=== PATIENT | male | born 1950 | race Caucasian/White ===

== ENCOUNTER 2018-02-28 14:00 | Inpatient (IN) | payer OTHER ==
[~2018-02-28] VITALS: Ht 177.8 cm; Wt 89.2 kg
--- NOTE | 2018-02-28 14:13 | ED CARDIAC/CP/PALPITATIONS ---
History of Present Illness General Chief Complaint: General Adult Stated Complaint: LOW PULSE, PASSED OUT Source: patient, family, old records Exam Limitations: no limitations Vital Signs & Intake/Output Vital Signs & Intake/Output Vital Signs Date Time Temp Pulse Resp B/P B/P Pulse O2 O2 Flow FiO2 Mean Ox Delivery Rate 02/28 1522 97.7 124 18 170/78 02/28 1454 97.7 124 18 170/78 97 Room Air 02/28 1448 98.9 166 20 172/114 02/28 1426 98 02/28 1412 98.9 166 20 135/102 98 Room Air Allergies Coded Allergies: acetaminophen (From PERCOCET) (RASH 02/28/18) oxycodone (From PERCOCET) (RASH 02/28/18) Reconcile Medications No Known Home Medications Triage Nurses Notes Reviewed? yes HPI: Patient was getting the probe ready did have a barbecue when all of a sudden he felt substernal chest pressure and felt like his heart was skipping beats. Patient went inside and took his blood pressure and the monitor was having a difficult time getting his pulse. Patient went into A. fib once in the past after a Whipple's procedure however he converted back to sinus and hence been in sinus rhythm ever since. Patient states he saw his cardiovascular surgical tech just a few weeks ago and they talked about long-term anticoagulation however decided against it. Patient denies any lightheadedness or shortness of breath. The substernal pressure has resolved however he still does feel the palpitations. There is no nausea or vomiting. Patient has been on blood pressure medication however his blood pressure was doing great so he stopped it a few months ago. Past History Travel History Traveled to [place] past 21 day No Medical History Any Pertinent Medical History? see below for history Cardiovascular: AFIB (ONCE), hypertension Surgical History Surgical History: WHIPPLE'S PROSTETECTOMY Psychosocial History What is your primary language Burundian Tobacco Use: Never used ETOH Use: occasional use Illicit Drug Use: denies illicit drug use Family History Hx Contributory? No Review of Systems Review of Systems Constitutional: Reports: no symptoms. EENTM: Reports: no symptoms. Respiratory: Reports: no symptoms. Cardiovascular: Reports: see HPI, chest pain, palpitations. GI: Reports: no symptoms. Genitourinary: Reports: no symptoms. Musculoskeletal: Reports: no symptoms. Skin: Reports: no symptoms. Neurological/Psychological: Reports: no symptoms. Hematologic/Endocrine: Reports: no symptoms. Immunologic/Allergic: Reports: no symptoms. All Other Systems: Reviewed and Negative Physical Exam Physical Exam General Appearance: well developed/nourished, alert, awake, anxious, moderate distress Head: atraumatic, normal appearance Eyes: Bilateral: PERRL, EOMI. Ears, Nose, Throat: normal pharynx, normal ENT inspection, hearing grossly normal Neck: normal inspection, supple, full range of motion Respiratory: normal breath sounds, chest non-tender, no respiratory distress, lungs clear Cardiovascular: normal peripheral pulses, tachycardia, irregularly irregular Gastrointestinal: normal bowel sounds, soft, non-tender, no organomegaly Back: normal inspection, normal range of motion Extremities: normal inspection, normal capillary refill, normal range of motion, no edema Neurologic/Psych: no motor/sensory deficits, awake, alert, oriented x 3, normal gait, normal mood/affect Skin: intact, normal color, warm/dry Lymphatic: no anterior cervical tejinder Core Measures ACS in differential dx? Yes CVA/TIA Diagnosis No Sepsis Present: No Sepsis Focused Exam Completed? No Progress Differential Diagnosis: AMI, atrial fibrillation, hyperthyroid Plan of Care: Orders Procedure Date/time Status Patient Data 02/28 1540 Active Telemetry/[employer] Clerk 02/28 1412 Active D-DIMER 02/28 1407 Complete URINALYSIS 02/28 1402 Complete TSH REFLEX 02/28 1402 Complete TROPONIN LEVEL 02/28 1402 Complete MAGNESIUM 02/28 1402 Complete COMPREHENSIVE METABOLIC PANEL 02/28 1402 Complete CBC WITHOUT DIFFERENTIAL 02/28 1402 Complete EKG 02/28 1402 Active Current Medications Sig/Candice Start time Last Medication Dose Stop Time Status Admin Diltiazem HCl 10 MG ONCE ONE 02/28 1600 UNVr (Cardizem) 02/28 1601 Diltiazem HCl 125 MG Q12H 02/28 1600 UNVr (Cardizem DRIP) Dextrose/Water 100 ML (D5W) Heparin Sodium 5,000 UNIT ONCE ONE 02/28 1600 UNVr (Porcine) 02/28 1601 (Heparin Bolus) Heparin Sodium/ 25,000 UNIT Q24H 02/28 1600 UNVr Dextrose (Heparin) Dextrose/Water 500 ML (D5W) Laboratory Tests 02/28/18 1445: Urine Color YEL, Urine Clarity CLEAR, Urine pH 6.0, Ur Specific [place] 1.015, Urine Protein NEG, Urine Ketones NEG, Urine Nitrite NEG, Urine Bilirubin NEG, Urine Urobilinogen 0.2, Ur Leukocyte Esterase NEG, Ur Microscopic EXAM NOT REQUIRED, Urine Hemoglobin NEG, Urine Glucose NEG 02/28/18 1415: Anion Gap 14, Estimated GFR > 60, BUN/Creatinine Ratio 16.7, Glucose 116 H, Calcium 9.7, Magnesium 2.0, Total Bilirubin 0.6, AST 28, ALT 32, Alkaline Phosphatase 67, Troponin I < 0.01, Total Protein 7.4, Albumin 4.7, Globulin 2.7, Albumin/Globulin Ratio 1.7, TSH &T3 &Free T4 Intrp 1.580, D-Dimer High Sensitivty < 200, CBC w Diff NO MAN DIFF REQ, RBC 4.90, MCV 89.6, MCH 30.2, MCHC 33.7, RDW 13.6, MPV 6.7 L, Gran % 65.1, Lymphocytes % 26.2, Monocytes % 7.7, Eosinophils % 0.7, Basophils % 0.3, Absolute Granulocytes 4.9, Absolute Lymphocytes 2.0, Absolute Monocytes 0.6, Absolute Eosinophils 0.1, Absolute Basophils 0 Initial ED EKG: AFIB (WITH RVR), nonspecific ST T wave chg Prior EKG: changed Rhythm Strip: atrial fibrillation Departure Departure Disposition: STILL A PATIENT Condition: Stable Clinical Impression Primary Impression: Atrial fibrillation with RVR Secondary Impressions: Chest pain Referrals: Dawn HAAS,Sp Avendaño (PCP/Family) Departure Forms: Customer Survey General Discharge Information Prescriptions: Current Visit Scripts No Known Home Medications Admission Note Spoke With: Danette HAAS,Ninfa Olivier Documentation of Exam: Documentation of any treatments & extenuating circumstances including Concerns Regarding Discharge (functional status, medication knowledge or non-compliance, living conditions, etc.) that warrant an admission rather than observation: [ Telemetry admission, serial enzymes, Cardizem drip, heparin drip, cardiology consultation] Critical Care Note Critical Care Note Critical Care Time: mins: (90 MIN)
[2018-02-28 14:28] LABS: ABSOLUTE BASOPHIL COUNT 0 /CUMM (0.0-0.2); ABSOLUTE EOSINOPHIL COUNT 0.1 /CUMM (0.0-0.7); ABSOLUTE GRANULOCYTE CT 4.9 /CUMM (1.4-6.5); ABSOLUTE MONOCYTE COUNT 0.6 /CUMM (0.10-0.60); BASOPHIL % 0.3 % (0.0-2.0); EOSINOPHIL % 0.7 % (0-5); GRANULOCYTE % 65.1 % (42.2-75.2); HEMATOCRIT 43.9 % (42-52); MEAN CORPUSCULAR HGB 30.2 PG (27.0-31.0); MEAN CORPUSCULAR HGB CONC 33.7 G/DL (33.0-37.0); MEAN CORPUSCULAR VOLUME 89.6 FL (80.0-94.0); MEAN PLATELET VOLUME 6.7 FL (7.4-10.4); PLATELET COUNT 248 /CUMM (130-400); RBC DISTRIBUTION WIDTH 13.6 % (11.5-14.5); WHITE BLOOD CELL COUNT 7.5 /CUMM (4.8-10.8)
--- NOTE | 2018-02-28 15:37 | RADIOLOGY REPORT ---
EXAMINATION: XR PORTABLE CHEST CLINICAL INFORMATION: Chest pain COMPARISON: CT dated 05/14/2012 TECHNIQUE: AP portable upright view of the chest FINDINGS: Lungs are clear. No consolidation, pneumothorax, or pleural effusion. Cardiac and mediastinal contours are normal. Pulmonary vasculature is unremarkable. 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 IMPRESSION: No acute cardiopulmonary findings
[2018-02-28 16:46] LABS: PT 13.1 SEC (9.4-12.5); PTT 29 SEC (25-37)
--- NOTE | 2018-02-28 16:56 | History & Physical ---
See Addendum Rah Helton 02/28/18 1655: General Information and HPI Source of Information: patient Exam Limitations: no limitations History of Present Illness: Patient is a 67-year-old male with past medical history of hypertension, as well as a brief period of Atrial fibrillation after undergoing a Whipple procedure in June 2017since resolved. Patient also became hypotensive to the point of receiving blood transfusions after laparoscopic prostatectomy in November of this year, but has otherwise not been found to be hypotensive. The patient was at his grill for a Fourth of February when he began to experience chest pain, that was crushing in nature in the center of his chest. He remained at the grill for approximately half an hour until the pain became too much to bear and he went inside and checked his blood pressure, which his machine was unable to read and gave a pulse into the 120s and above. While inside the patient also began to feel faint and felt like he would pass out. Patient denied shortness of breath, diaphoresis, impending sense of dread, or nausea and vomiting. Allergies/Medications Allergies: Coded Allergies: acetaminophen (From PERCOCET) (RASH 02/28/18) oxycodone (From PERCOCET) (RASH 02/28/18) Home Med list No Known Home Medications Compliance With Home Meds: FAIR Past History Travel History Traveled to [place] past 21 day No Medical History Blood Transfusion Hx: Yes (s/p prostatectomy November 2017) Cardiovascular: AFIB (ONCE 3 DAYS POST WHIPPLE), hypertension Respiratory: NONE Gastrointestinal: Pancreatic neuroendocrine tumor, s/p Whipple Musculoskeletal: Prior surgery after putting "hand through a table saw" Cancer(s): PROSTATE CA s/p prostatectomy TUMOR ON PANCREAS (Neuroendocrine) 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 Home Primary Language: Croatian Smoking Status: Former Smoker (20 pack year history, quit 30y) ETOH Use: occasional use Illicit Drug Use: denies illicit drug use Functional Ability Ambulation: independent IADLs Independent: shopping, housework, finances, food prep, telephone, transportation , medication admin. 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 Denies: see HPI, chills, diaphoresis, fever. Cardiovascular: Reports: see HPI, chest pain, palpitations, syncope (near-syncope). Denies: edema, peripheral edema. Respiratory: Denies: cough, hemoptysis, orthopnea, short of breath, sputum production. GI: Denies: abdominal pain, constipation, diarrhea, nausea, vomiting. Musculoskeletal: Denies: muscle pain, muscle stiffness. Skin: Reports: cysts (sebaceous cyts, posterior neck), rash (on right back/flank). Exam & Diagnostic Data Last 24 Hrs of Vital Signs/I&O Vital Signs Date Time Temp Pulse Resp B/P B/P Pulse O2 O2 Flow FiO2 Mean Ox Delivery Rate 02/28 1733 Room Air 02/28 1648 118 18 162/92 97 Room Air 02/28 1643 97.7 124 18 162/92 02/28 1522 97.7 124 18 170/78 02/28 1454 97.7 124 18 170/78 97 Room Air 02/28 1448 98.9 166 20 172/114 02/28 1426 98 02/28 1412 98.9 166 20 135/102 98 Room Air Intake & Output 02/28 1600 04 0800 02/28 0000 Intake Total 1000 Output Total 700 Balance 300 Intake, IV 1000 Output, Urine 700 Patient 83.915 kg Weight Physical Exam General Appearance Alert, Oriented X3, Cooperative, No Acute Distress Skin Rash on right flank/back Neck Supple, No JVD, No thryomegaly Cardiovascular Irregular rate, tachycardic Lungs Clear to Auscultation Abdomen Soft, No Tenderness, large scar along the midline, multiple laparoscopic scars on the lower abdomen Extremities No Clubbing, No Cyanosis, No Edema Body Front and Back (Adult) 1) rash 2) scar 3) scar Last 24 Hrs of Labs/Paul: Laboratory Tests 02/28/18 1445: Urine Color YEL, Urine Clarity CLEAR, Urine pH 6.0, Ur Specific [place] 1.015, Urine Protein NEG, Urine Ketones NEG, Urine Nitrite NEG, Urine Bilirubin NEG, Urine Urobilinogen 0.2, Ur Leukocyte Esterase NEG, Ur Microscopic EXAM NOT REQUIRED, Urine Hemoglobin NEG, Urine Glucose NEG 02/28/18 1415: Anion Gap 14, Estimated GFR > 60, BUN/Creatinine Ratio 16.7, Glucose 116 H, Calcium 9.7, Magnesium 2.0, Total Bilirubin 0.6, AST 28, ALT 32, Alkaline Phosphatase 67, Troponin I < 0.01, Total Protein 7.4, Albumin 4.7, Globulin 2.7, Albumin/Globulin Ratio 1.7, TSH &T3 &Free T4 Intrp 1.580, PT 13.1 H, INR 1.20 H, APTT 29, D-Dimer High Sensitivty < 200, CBC w Diff NO MAN DIFF REQ, RBC 4.90, MCV 89.6, MCH 30.2, MCHC 33.7, RDW 13.6, MPV 6.7 L, Gran % 65.1, Lymphocytes % 26.2, Monocytes % 7.7, Eosinophils % 0.7, Basophils % 0.3, Absolute Granulocytes 4.9, Absolute Lymphocytes 2.0, Absolute Monocytes 0.6, Absolute Eosinophils 0.1, Absolute Basophils 0 Assessment/Plan Assessment: Patient is a 67-year-old male with PMH of HTN, as well as a brief period of post -op A-fib in 2016, presenting for chest pain, palpitations and near-syncope while at a [facility] [place]. Admitted for rapid atrial fibrillation 1. Atrial fibrillation episodes procedure in June 2017 (previously managed with amiodarone) [place] 2. Chest pain 3. Hypertension As Ranked By This Provider Problem List: 1. Atrial fibrillation with RVR 2. Chest pain 3. Hypertension Core Measures/Misc (05/14) Acute Coronary Syndrome ACS Diagnosis: No Congestive Heart Failure Congestive Heart Failure Diagnosis No Cerebrovascular Accident CVA/TIA Diagnosis: No VTE (View Protocol) VTE Risk Factors Age>40 No Mechanical VTE Prophylaxis d/t N/A MechProphylax Ordered No VTE Pharm Prophylaxis d/t LowRisk-No Interven Req'd Sepsis (View protocol) Sepsis Present: No If YES complete Sepsis Event Note If YES complete Sepsis Event Note Ralf Knox 02/28/18 1722: Core Measures/Misc (05/14) Sepsis (View protocol) If YES complete Sepsis Event Note If YES complete Sepsis Event Note Resident Review Statement Resident Statement: examined this patient, discussed with food and beverage intern, agreed with food and beverage intern, discussed with family, reviewed EMR data (avail), discussed with nursing , discussed with case mgmt, reviewed images, amended to note Other Findings: This is a 67-year-old male with past medical history significant for paroxysmal atrial fibrillation, remained in normal sinus rhythm, hypertension, Whipple's procedure s/p neuroendocrine tumor removal, laparoscopic prostatectomy for prostate cancer presented to the emergency room for evaluation of chest pressure , palpitations, short of breath since morning. Patient reports sudden onset of chest pressure associated with skipped beats. He checked his blood pressure which was high and he found his pulse was 130. Also reported associated shortness of breath. Patient states that chest pressure was left-sided, 8/10, substernal, nonradiating, no aggravating or relieving factors. Given chest pain, palpitations, high heart rate he decided to come to the emergency room for further evaluation. Review of systems denies any cough, lightheadedness, dizziness or syncope, headache, nausea vomiting, abdominal pain, change in bladder or bowel habits. Patient states that he was diagnosed with paroxysmal atrial fibrillation last year after Whipple's procedure. However he was returned to sinus rhythm within few days. His exercise manager from [employer] discontinued amiodarone and metoprolol. Also he mentions that he chose not to take blood thinners at bedtime. Patient states that he takes adarbyclor for his prior blood pressure. He is a former smoker half pack per day for 25 years. Denies alcohol abuse. Denies any illicit drug abuse. No family history of heart attack, stroke, heart diseases. --- Vitals afebrile, heart rate 166, respiratory rate 18, blood pressure 170/70, saturating at 97 on room air. Exam S1-S2 normal, irregularly irregular heart rate, no murmurs. Bilateral lung sounds normal. Abdomen soft nontender. No JVD, no cervical lymphadenopathy. No peripheral edema Labs wbc 7.5, hemoglobin 14, platelets 248, BEP normal limits. D-dimer less than 200 Thyroid function test in normal limits Troponin 0.01 Chest x-ray within normal limits EKG showed new onset atrial fibrillation, rate 154, no acute ST-T wave changes. Patient received Cardizem 10 mg push IV twice in the emergency room. He was given heparin bolus and started on heparin drip and Cardizem drip in the emergency room. --- 1. Atrial fibrillation with rapid ventricular response Patient presented with chest pressure associated with palpitations. He was found to have heart rate of 166. EKG in the emergency room showed atrial fibrillation with irregularly irregular RR interval, rate 154, no ST-T wave changes. Troponin was negative. Given his palpitations, EKG findings patient was admitted to telemetry for atrial fibrillation. -Admit to telemetry for rapid A. fib -Continuous telemetry monitoring -Patient was started on Cardizem drip 12.5 mL/hr -Patient was started on heparin drip after heparin bolus -Cardiology consulted -Serial troponin and EKG given his chest pain - which resolved by its own -Follow-up echocardiogram -Thyroid function test within normal limits -Advised patient to cut down on caffeine 2. Hypertension Patient usually takes as his losartan and chlorthalidone combination at home - will continue losartan and chlorthalidone here Patient is full code DVT prophylaxis on IV heparin drip Regular diet Frances Samaniego 02/28/18 1735: Core Measures/Misc (05/14) Sepsis (View protocol) If YES complete Sepsis Event Note If YES complete Sepsis Event Note Attending MD Review Statement Attending Statement Attending MD Statement: examined this patient, discuss w/resident/PA/KITCHENHAND, agreed w/resident/PA/KITCHENHAND, discussed with family, reviewed EMR data (avail), discussed with nursing, discussed with case mgmt, reviewed images, amended to note Attending Assessment/Plan: This is a 67-year-old male with past medical history significant for paroxysmal atrial fibrillation, remained in normal sinus rhythm, hypertension, Whipple's procedure s/p neuroendocrine tumor removal, laparoscopic prostatectomy for prostate cancer presented to the emergency room for evaluation of chest pressure , palpitations, short of breath since morning. Patient found to be in afib uncontrolled started on iv cardizem in ER. Patient also on iv heparin, needs cardiology consult, ECHO, serial cardiac enzymes. GI/DVT PROPHYLAXIS FULL CODE.
[2018-02-28 18:04] VITALS: BP 158/96
--- NOTE | 2018-02-28 18:44 | PN- Student ---
Subjective Subjective: HPI: This is a 67 year old man with a past medical history of hypertension, prior episode of a-fib, S/P Whipple Procedure, S/P prostatectomy. He arrived in the ER following a new onset of chest pain. His pain began this afternoon at 12:30 while he was barbequeing for his family. He became dizzy and felt mild chest pain that he rated at a 2/10 on the pain scale along with indigestion, and visual field narrowing that waxed and waned. He denied any radiating pain. He moved out of the heat and in to an air conditioned room where he attempted to take his blood pressure, however the machine kept stating pulse error and reporting his pulse from 40 to 149 beats per minute. He felt this may possibly be a-fib and came to [place] [facility]. He has experienced a-fib once in the past following a Whipple Procedure done in June of 2017. He was treated for it by Dr. Lynn in [place] with metoprolol and amiodarone, but did not require terminal operations manager care by a welding pantograph operator. His hypertension was diagnosed over 10 years ago, but he stated that he stopped taking his blood pressure medication following the Whipple Procedure because he felt that it was well controlled following the surgery. He states that he takes his blood pressure regularly and it is in the 130's systolic with no medications. He dislikes taking medications unless necessary, and felt comfortable with his blood pressure. He denies any recent sick contacts, fevers, headaches, vision changes, indigestion, nausea, vomiting, numbness or tingling. Past medical history Chronic conditions: -Patient denied any chronic conditions aside from HTN. Patient denied prior hospitalizations. 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 Patient had to be transfused post surgery due to hypotension. 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 -Bikes regularly and walks. -He feels his diet is healthy but does not specifically watch his salt intake. -Denies current alcohol usage, admitted to drinking beer in the past with dinner on occasion. -Former smoker, smoked 1 pack a day for 20 years, quit 30 years ago. Family history: -Father: HTN, pacemaker at 89 yo. -Mother: Alive and well at 89. -6 siblings, all reported healthy. Objective Objective: Physical Exam: General: Patient was alert and oriented, pleasant, and well spoken. Skin: Erythemic pigmentation noted to patient's face. Macular rash with a scattered distribution covering an area of over 10 cm on patient's right posterior flank. Head: Normocephalic, atraumatic. PERRLA. Neck: No JVD, trachea was midline. Chest: No lifts, heaves, or thrills. Apical pulse was appreciated. Pulse was irregular, but normal rate. S1 and S2 sounds were heard with no splitting. No rubs, clicks, murmurs or gallops were heard. Lungs: Even thoracic expansion, lung sounds were clear bilaterally. Abdomen: Bowel sounds were heard every 2-3 seconds. Abdomen was soft and nontender in all quadrants. No CVA tenderness. Vital Signs Date Time Temp Pulse Resp B/P B/P Pulse O2 O2 Flow FiO2 Mean Ox Delivery Rate 03/01 0850 86 124/72 07/05 0849 86 124/72 07/05 0641 97.6 66 20 108/68 97 Room Air 07/04 2305 98.3 70 18 118/62 95 Room Air 07/04 1841 102 160/82 07/04 1804 98.2 101 20 158/96 97 Room Air 07/04 1733 Room Air 07/04 1648 118 18 162/92 97 Room Air 07/04 1643 97.7 124 18 162/92 07/04 1522 97.7 124 18 170/78 07/04 1454 97.7 124 18 170/78 97 Room Air 07/04 1448 98.9 166 20 172/114 07/04 1426 98 07/04 1412 98.9 166 20 135/102 98 Room Air Imaging: CXR was clear. Lab values: Troponins were trended and negative. Elevated glucose level at 116. Results Results: Laboratory Tests 03/01/18 1110: APTT Pending 03/01/18 0650: Anion Gap 9, Estimated GFR > 60, BUN/Creatinine Ratio 16.3, CBC w Diff NO MAN DIFF REQ, RBC 4.38 L, MCV 90.1, MCH 30.3, MCHC 33.7, RDW 13.7, MPV 6.9 L, Gran % 60.6, Lymphocytes % 29.4, Monocytes % 8.9, Eosinophils % 0.8, Basophils % 0.3, Absolute Granulocytes 4.1, Absolute Lymphocytes 2.0, Absolute Monocytes 0.6, Absolute Eosinophils 0.1, Absolute Basophils 0 03/01/18 0205: Troponin I < 0.01 02/28/18 2315: APTT 66 H 02/28/18 2030: Troponin I < 0.01 02/28/18 1445: Urine Color YEL, Urine Clarity CLEAR, Urine pH 6.0, Ur Specific [place] 1.015, Urine Protein NEG, Urine Ketones NEG, Urine Nitrite NEG, Urine Bilirubin NEG, Urine Urobilinogen 0.2, Ur Leukocyte Esterase NEG, Ur Microscopic EXAM NOT REQUIRED, Urine Hemoglobin NEG, Urine Glucose NEG 02/28/18 1415: Anion Gap 14, Estimated GFR > 60, BUN/Creatinine Ratio 16.7, Glucose 116 H, Calcium 9.7, Magnesium 2.0, Total Bilirubin 0.6, AST 28, ALT 32, Alkaline Phosphatase 67, Troponin I < 0.01, Total Protein 7.4, Albumin 4.7, Globulin 2.7, Albumin/Globulin Ratio 1.7, TSH &T3 &Free T4 Intrp 1.580, PT 13.1 H, INR 1.20 H, APTT 29, D-Dimer High Sensitivty < 200, CBC w Diff NO MAN DIFF REQ, RBC 4.90, MCV 89.6, MCH 30.2, MCHC 33.7, RDW 13.6, MPV 6.7 L, Gran % 65.1, Lymphocytes % 26.2, Monocytes % 7.7, Eosinophils % 0.7, Basophils % 0.3, Absolute Granulocytes 4.9, Absolute Lymphocytes 2.0, Absolute Monocytes 0.6, Absolute Eosinophils 0.1, Absolute Basophils 0 Assessment/Plan Assessment: This is a 67 year old man with past medical history of hypertension, prior a-fib , S/P Whipple procedure, S/P prostatectomy being seen for chest pain. Arrhythmia: Patient had a maximum heart rate of 129 beats per minute and irregularly irregular findings on the EKG indicating a-fib. Due to a [id number] score of 2, he will have to be anticoagulated. AL was ruled out with EKG without ST elevations and negative troponins. Unlikely to be aortic dissection given mild character of the chest pain that did not radiate to the back and no difference in blood pressure in both arms. Patient denied any recent sicknesses or sick contacts, or pain associated with change in position - unlikely to be pericarditis. Hypertension: The patient has had questionable compliance with blood pressure medication. While he stated that he took his blood pressure medications for years, he reported to me that he stopped taking all blood pressure medication in June of 2017 following his Whipple Procedure. When he was taking his medication, he preferred Chlorthalidone. Although patient reports checking his blood pressure regularly, it is unclear how controlled his blood pressure has been at home. Skin rash: The patient has had the rash on his flank for approximately one year with no changes. He said he never pursued medical care for the rash because it did not itch, burn, or bother him and he stated that he prefers not to go to the doctor unless he feels it is necessary. Consider possible tinea versicolor and seborrheic dermatitis. Plan: A-Fib: -Diltiazole 125 MG Q12h IV -Heparin 25,000 units Q24h IV -Schedule echocardiogram -Schedule cardiology consult -Trended troponins (negative) -EKG performed Hypertension: -Chlorthalidone 12.5 MG -Losartan 25 MG Skin rash: -Encourage outpatient dermatologic or PCP follow up.
[2018-02-28 23:05] VITALS: BP 118/62
[2018-03-01 00:30] LABS: PTT 66 SEC (25-37)
[2018-03-01 06:41] VITALS: BP 108/68
--- NOTE | 2018-03-01 07:34 | PN- Housestaff ---
Rah Helton 03/01/18 0734: Subjective Follow-up For: Atrial fibrillation Subjective: Patient seen resting comfortably in the bed. No current complaints of pain, palpitations, shortness of breath, or edema. Patient does complain of brief episodes of dizziness that he has experienced throughout the night, but denies visual changes and dizziness is not associated with postural changes. Patient denies cough, fever, headache, nausea, vomiting, diaphoresis. Review of Systems Constitutional: Denies: chills, diaphoresis, fever, malaise, weakness. Respiratory: Denies: cough, hemoptysis, short of breath, sputum production. Gastrointestinal: Denies: abdominal pain, constipation, diarrhea, nausea, vomiting. Objective Last 24 Hrs of Vital Signs/I&O Vital Signs Date Time Temp Pulse Resp B/P B/P Pulse O2 O2 Flow FiO2 Mean Ox Delivery Rate 03/01 1520 97.8 74 20 110/70 96 Room Air 03/01 1459 79 124/72 03/01 0850 86 124/72 03/01 0849 86 124/72 03/01 0641 97.6 66 20 108/68 97 Room Air 02/28 2305 98.3 70 18 118/62 95 Room Air 02/28 1841 102 160/82 07 1804 98.2 101 20 158/96 97 Room Air 02/28 1733 Room Air Intake & Output 03/01 1600 03/01 0800 03/01 0000 Intake Total 830 460 220 Output Total Balance 830 460 220 Intake, IV 80 240 Intake, Oral 750 220 220 Number 1 Bowel Movements Patient 86.721 kg Weight Weight Bed scale Measurement Method Physical Exam General Appearance: Alert, Oriented X3, Cooperative, No Acute Distress Neck: Supple, No JVD, No thryomegaly, +2 Carotid Pulse wo Bruit Cardiovascular: Normal S1, Normal S2, No Murmurs, Irregular rate Lungs: Clear to Auscultation Abdomen: Soft, No Tenderness Extremities: No Clubbing, No Cyanosis, No Edema Current Medications: Current Medications Sig/Candice Start time Last Medication Dose Route Stop Time Status Admin Apixaban 5 MG BID 03/01 1037 AC 03/01 PO 1213 Chlorthalidone 12.5 MG DAILY 02/28 1724 DC 03/01 PO 0850 Diltiazem HCl 30 MG Q6H 03/01 0900 AC 03/01 PO 1459 Diltiazem HCl 125 MG Q24H 03/01 0745 DC Dextrose/Water 100 ML IV Diltiazem HCl 125 MG Q12H 02/28 1600 DC 03/01 Dextrose/Water 100 ML IV 0525 Heparin Sodium/ 25,000 UNIT Q24H 02/28 1600 DC 02/28 Dextrose IV 1643 Dextrose/Water 500 ML Losartan Potassium 25 MG DAILY 02/28 1727 DC 03/01 PO 0849 Last 24 Hrs of Lab/Paul Results Last 24 Hrs of Labs/Mics: Laboratory Tests 03/01/18 1110: APTT 48 H 03/01/18 0650: Anion Gap 9, Estimated GFR > 60, BUN/Creatinine Ratio 16.3, CBC w Diff NO MAN DIFF REQ, RBC 4.38 L, MCV 90.1, MCH 30.3, MCHC 33.7, RDW 13.7, MPV 6.9 L, Gran % 60.6, Lymphocytes % 29.4, Monocytes % 8.9, Eosinophils % 0.8, Basophils % 0.3, Absolute Granulocytes 4.1, Absolute Lymphocytes 2.0, Absolute Monocytes 0.6, Absolute Eosinophils 0.1, Absolute Basophils 0 03/01/18 0205: Troponin I < 0.01 02/28/18 2315: APTT 66 H 02/28/18 2030: Troponin I < 0.01 Assessment/Plan Assessment: 67-year-old male with history of paroxysmal atrial fibrillation, presented with rapid irregular heart rate. Being treated for atrial fibrillation. 1. Atrial fibrillation hours workup for coronary artery sclerosis discharge 2. Hypertension managed after adjusting dose of Cardizem Problem List: 1. Atrial fibrillation with RVR 2. Hypertension Pain Ratin Pain Location: none Pain Goal: Remain pain free Pain Plan: Call MD Tomorrow's Labs & Rationales: Lipid panel, CBC Naveed HAAS,Ludy 03/01/18 1157: Attending MD Review Statement Attending Statement Attending MD Statement: examined this patient, discuss w/resident/PA/DIRECTOR SOFTWARE, agreed w/resident/PA/DIRECTOR SOFTWARE, reviewed EMR data (avail), discussed with nursing, discussed with case mgmt, amended to note Attending Assessment/Plan: Patient seen and examined. Resting comfortably not in acute distress. present at the bedside. Remains in atrial fibrillation. Rate control is currently improving. We control is currently improving, he has been weaned off Cardizem infusion and started on oral Cardizem. Due to his elevated chads 2 vasc score he has been started on anticoagulant therapy with heparin. Recommendations: -Continue Cardizem. Discontinue his losartan and chlorthalidone in order to allow room for titration of his Cardizem. -Begin patient on anticoagulation therapy with Eliquis. -Follow-up echocardiogram. -Awaiting evaluation by the cardiology service. Continue telemetry monitoring. He was reported to have heart rate in the 40s transiently. -Due to his history of erectile dysfunction will benefit from cardiac workup to rule out underlying coronary artery disease.
[2018-03-01 07:41] LABS: ABSOLUTE BASOPHIL COUNT 0 /CUMM (0.0-0.2); ABSOLUTE EOSINOPHIL COUNT 0.1 /CUMM (0.0-0.7); ABSOLUTE GRANULOCYTE CT 4.1 /CUMM (1.4-6.5); ABSOLUTE MONOCYTE COUNT 0.6 /CUMM (0.10-0.60); BASOPHIL % 0.3 % (0.0-2.0); EOSINOPHIL % 0.8 % (0-5); GRANULOCYTE % 60.6 % (42.2-75.2); HEMATOCRIT 39.5 % (42-52); MEAN CORPUSCULAR HGB 30.3 PG (27.0-31.0); MEAN CORPUSCULAR HGB CONC 33.7 G/DL (33.0-37.0); MEAN CORPUSCULAR VOLUME 90.1 FL (80.0-94.0); MEAN PLATELET VOLUME 6.9 FL (7.4-10.4); PLATELET COUNT 226 /CUMM (130-400); RBC DISTRIBUTION WIDTH 13.7 % (11.5-14.5); RED BLOOD CELL CT 4.38 /CUMM (4.70-6.10); WHITE BLOOD CELL COUNT 6.7 /CUMM (4.8-10.8)
--- NOTE | 2018-03-01 11:24 | PN- Student ---
Subjective Subjective: This is a 67 year old man with a past medical history of hypertension, prior a- fib, status post Whipple Procedure, status post prostatectomy. He is being treated for new onset a-fib and hypertension. Overnight, he had no complaints. He is interested in going home as soon as possible. He denied nausea, vomiting, fever, chest pain, shortness of breath, and said the lightheadedness he was experiencing last night had improved. Objective Objective: Physical Exam: General: Patient was found sitting up. He was alert and oriented, pleasant, and well spoken. Heart: Regular rate, irregular rhythm. Normal S1 and S2. No murmurs, rubs, clicks, or gallops. Lungs: Even thoracic expansion. Lung sounds clear to auscultation in all [place]. Skin: Macular rash of over 10 cm with scattered distribution present on right flank. Erythema noted to face. No lower extremity edema noted. Vital Signs Date Time Temp Pulse Resp B/P B/P Pulse O2 O2 Flow FiO2 Mean Ox Delivery Rate 03/01 1459 79 124/72 / 0850 86 124/72 / 0849 86 124/72 07/05 0641 97.6 66 20 108/68 97 Room Air 07/04 2305 98.3 70 18 118/62 95 Room Air 07/04 1841 102 160/82 07/04 1804 98.2 101 20 158/96 97 Room Air 07/04 1733 Room Air 07/04 1648 118 18 162/92 97 Room Air 07/04 1643 97.7 124 18 162/92 07/04 1522 97.7 124 18 170/78 Results Results: Laboratory Tests 03/01/18 1110: APTT 48 H 03/01/18 0650: Anion Gap 9, Estimated GFR > 60, BUN/Creatinine Ratio 16.3, CBC w Diff NO MAN DIFF REQ, RBC 4.38 L, MCV 90.1, MCH 30.3, MCHC 33.7, RDW 13.7, MPV 6.9 L, Gran % 60.6, Lymphocytes % 29.4, Monocytes % 8.9, Eosinophils % 0.8, Basophils % 0.3, Absolute Granulocytes 4.1, Absolute Lymphocytes 2.0, Absolute Monocytes 0.6, Absolute Eosinophils 0.1, Absolute Basophils 0 03/01/18 0205: Troponin I < 0.01 02/28/18 2315: APTT 66 H 02/28/18 2030: Troponin I < 0.01 02/28/18 1445: Urine Color YEL, Urine Clarity CLEAR, Urine pH 6.0, Ur Specific [place] 1.015, Urine Protein NEG, Urine Ketones NEG, Urine Nitrite NEG, Urine Bilirubin NEG, Urine Urobilinogen 0.2, Ur Leukocyte Esterase NEG, Ur Microscopic EXAM NOT REQUIRED, Urine Hemoglobin NEG, Urine Glucose NEG 02/28/18 1415: Anion Gap 14, Estimated GFR > 60, BUN/Creatinine Ratio 16.7, Glucose 116 H, Calcium 9.7, Magnesium 2.0, Total Bilirubin 0.6, AST 28, ALT 32, Alkaline Phosphatase 67, Troponin I < 0.01, Total Protein 7.4, Albumin 4.7, Globulin 2.7, Albumin/Globulin Ratio 1.7, TSH &T3 &Free T4 Intrp 1.580, PT 13.1 H, INR 1.20 H, APTT 29, D-Dimer High Sensitivty < 200, CBC w Diff NO MAN DIFF REQ, RBC 4.90, MCV 89.6, MCH 30.2, MCHC 33.7, RDW 13.6, MPV 6.7 L, Gran % 65.1, Lymphocytes % 26.2, Monocytes % 7.7, Eosinophils % 0.7, Basophils % 0.3, Absolute Granulocytes 4.9, Absolute Lymphocytes 2.0, Absolute Monocytes 0.6, Absolute Eosinophils 0.1, Absolute Basophils 0 Assessment/Plan Assessment: This is a 67 year old male with past medical history of hypertension, prior a- fib, status post Whipple Procedure, status post Prostatectomy who is currently being treated for a-fib. Atrial fibrillation: Overnight the patients heart rate has come down. This morning it was 66 beats per minute. Overnight, heart rate dropped to 46 beats per minute. Will plan on decreasing CCB and stopping other cardiac medications to evaluate CCB activity. Will continue anticoagulation. Hypertension: Patient's blood pressure has decreased to 108/68 mmHg. This is an improvement to yesterday's blood pressure, but we will adjust blood pressure medications to avoid hypotension. Low Hematocrit: Patient's hemoglobin and hematocrit were noted to have fallen to 13.3 and 39.5 respectively. We will investigate possible sources of blood loss. Skin rash: No change is noted to the skin rash. Plan: Atrial fibrillation: -Decrease Diltiazem to 30 MG Q6h PO -Discontinue Chlorthalidone -Discontinue Losartan -Change Heparin IV to Eliquis 5 MG PO BID -Awaiting cardiology consult -Awaiting echocardiogram Hypertension: -See above changes to medications for atrial fibrillation Low Hematocrit: -Obtain stool guaiac -Repeat H&H tomorrow Skin Rash: -Consider outpatient dermatological referral.
[2018-03-01 12:28] LABS: PTT 48 SEC (25-37)
[2018-03-01] MEDS ORDERED: EDARBYCLOR 40-1 EACH PO (13:30)
[2018-03-01] MEDS ORDERED: ELIQUIS5 M1 PO (13:31)
[2018-03-01 15:20] VITALS: BP 110/70
--- NOTE | 2018-03-01 16:19 | Cons- Cardiology ---
General Information and HPI Consulting Request Date of Consult: 03/01/18 Requested By: Ludy Lucio MD History of Present Illness: This patient is a 67 year old male with history of hypertension and paroxysmal atrial fibrillation. He recently underwent a Whipple procedure in June that was complicated by post-operative atrial fibrillation. He was placed on Amiodarone at that time but stop this medication in August. It should also be noted that this patient had an issue with hypotension following a laparoscopic prostatectomy this past November. As such, he has not taken any blood pressure medications. Yesterday, while engaged in mild activity at a [place], the patient noted the sudden onset of a mild and non-radiating left upper chest discomfort that was associated with dizziness. The discomfort was not accompanied by shortness of breath, nausea, vomiting or diaphoresis and did not have a pleuritic component to it. He did noted some palpitations. He now reports that the chest discomfort only lasted for a few seconds but the dizziness persisted prompting his presentation to the ER. At that time he was noted to be in atrial fibrillation with increased heart rate. Allergies/Medications Allergies: Coded Allergies: acetaminophen (From PERCOCET) (RASH 02/28/18) oxycodone (From PERCOCET) (RASH 02/28/18) Home Med List: Apixaban (Eliquis) 5 MG TABLET 1 TAB PO BID BLOOD THINNER Azilsartan Med/Chlorthalidone (Edarbyclor 40-12.5 MG Tablet) 40 MG-12.5 MG TABLET 1 TAB PO DAILY HYPERTENSION (Reported) Review of Systems Review of Systems: A review of systems is unremarkable. 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 Home Services at Home: None Primary Language: Turkmen Smoking Status: Former Smoker (20 pack year history, quit 30y) ETOH Use: occasional use Illicit Drug Use: denies illicit drug use Functional Ability Ambulation: independent IADLs Independent: shopping, housework, finances, food prep, telephone, transportation , medication admin. 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) Exam & Diagnostic Data Vital Signs and I&O Vital Signs Date Time Temp Pulse Resp B/P B/P Pulse O2 O2 Flow FiO2 Mean Ox Delivery Rate 03/01 1520 97.8 74 20 110/70 96 Room Air 03/01 1459 79 124/72 07/ 0850 86 124/72 07/ 0849 86 124/72 / 0641 97.6 66 20 108/68 97 Room Air / 2305 98.3 70 18 118/62 95 Room Air 02/28 1841 102 160/82 07 1804 98.2 101 20 158/96 97 Room Air 02/28 1733 Room Air 02/28 1648 118 18 162/92 97 Room Air 02/28 1643 97.7 124 18 162/92 Intake & Output 03/01 1600 / 0800 03/01 0000 /04 1600 / 0800 02/28 0000 Intake Total 830 236 737 4964 Output Total 700 Balance 830 460 220 300 Intake, IV 80 240 1000 Intake, Oral 750 220 220 Number 1 Bowel Movements Output, Urine 700 Patient 191 lb 185 lb Weight Weight Bed scale Measurement Method Physical Exam: General: WD/WN male in NAD; alert and oriented x 3 HEENT: NC/AT, PERRL, EOMI Neck: no JVD, no carotid bruit Heart: irregularly irregular with 2/6 systolic murmur Lungs: clear bilaterally Abdomen: soft, NT, +ve bowel sounds Extremities: no edema Assessment/Plan Assessment/Plan * This patient has atrial fibrillation with increased heart rate. This is not an isolated occurence and in the setting of paroxysmal atrial fibrillation this patient should be anticoagulated. He has a risk factor in the form of hypertension. Begin Eliquis 5mg BID. I would also begin a beta kermit for rate control and for control of his hypertension since this patient may have angina. Begin Metoprolol 25mg BID. Check a TSH and free T4 and obtain an echocardiogram. I do not think this patient had atrial fibrillation from a PE since he does not have shortness of breath of an elevated D-dimer. The cause of his atrial fibrillation is likely hypertension. * In consideration of chest discomfort associated with his elevated heart rate this patient may well have ischemia. He should be risk stratified with a treadmill nuclear stress test. Begin a statin. Consult Acknowledgment - Thank you for your consult request.
[2018-03-01 22:24] VITALS: BP 118/64
[2018-03-02 07:21] VITALS: BP 134/78
[2018-03-02 08:00] LABS: ABSOLUTE BASOPHIL COUNT 0 /CUMM (0.0-0.2); ABSOLUTE EOSINOPHIL COUNT 0.1 /CUMM (0.0-0.7); ABSOLUTE GRANULOCYTE CT 4.5 /CUMM (1.4-6.5); ABSOLUTE LYMPH COUNT 1.5 /CUMM (1.2-3.4); ABSOLUTE MONOCYTE COUNT 0.6 /CUMM (0.10-0.60); BASOPHIL % 0.4 % (0.0-2.0); EOSINOPHIL % 1.2 % (0-5); GRANULOCYTE % 67.5 % (42.2-75.2); HEMATOCRIT 41.7 % (42-52); MEAN CORPUSCULAR HGB 30.2 PG (27.0-31.0); MEAN CORPUSCULAR HGB CONC 33.5 G/DL (33.0-37.0); MEAN CORPUSCULAR VOLUME 90.2 FL (80.0-94.0); PLATELET COUNT 220 /CUMM (130-400); RBC DISTRIBUTION WIDTH 13.6 % (11.5-14.5); RED BLOOD CELL CT 4.62 /CUMM (4.70-6.10); WHITE BLOOD CELL COUNT 6.7 /CUMM (4.8-10.8)
--- NOTE | 2018-03-02 08:31 | PN- Housestaff ---
Rah Helton 03/02/18 0830: Subjective Follow-up For: Atrial fibrillation Subjective: Patient seen resting comfortably in the bed, was preoccupied with the weather report on the tv but took the time to speak with me. Denies chest pain, dyspnea, palpitations of fatigue. Patient reports that the dizziness has been improving, denies edema or cough. Review of Systems Constitutional: Denies: chills, diaphoresis, fever, malaise. Cardiovascular: Denies: chest pain, edema, orthopena, palpitations, peripheral edema. Respiratory: Denies: cough, hemoptysis, orthopnea, short of breath, sputum production. Gastrointestinal: Denies: abdominal pain, constipation, diarrhea, changes in stool. Objective Last 24 Hrs of Vital Signs/I&O Vital Signs Date Time Temp Pulse Resp B/P B/P Pulse O2 O2 Flow FiO2 Mean Ox Delivery Rate 03/02 1549 79 128/78 03/02 1421 98.0 90 18 138/90 97 Room Air 03/02 0804 82 142/84 03/02 0721 98.4 63 18 134/78 97 Room Air 03/02 0316 88 120/82 03/01 2224 98.3 89 18 118/64 95 Room Air 03/01 2109 85 112/70 Intake & Output 03/02 1600 07/06 0800 03/02 0000 Intake Total 320 120 120 Output Total Balance 320 120 120 Intake, Oral 320 120 120 Patient 89.159 kg Weight Weight Bed scale Measurement Method Physical Exam General Appearance: Alert, Oriented X3, Cooperative, No Acute Distress Neck: Supple, No JVD, No thryomegaly, +2 Carotid Pulse wo Bruit Cardiovascular: Regular Rate, Normal S1, Normal S2, No Murmurs Lungs: Clear to Auscultation Abdomen: Soft, No Tenderness Extremities: No Clubbing, No Cyanosis, No Edema, Normal Pulses Assessment/Plan Assessment: 67-year-old male with history of paroxysmal atrial fibrillation, presented with rapid irregular heart rate. Being treated for atrial fibrillation, rate and rhythm both improved. 1. Atrial fibrillation negative use discharge 2. Hypertension Problem List: 1. Atrial fibrillation with RVR 2. Hypertension Pain Ratin Pain Location: none Pain Goal: Pain 4 or less Pain Plan: call md Tomorrow's Labs & Rationales: none Ludy Lucio MD 03/02/18 1204: Attending MD Review Statement Attending Statement Attending MD Statement: examined this patient, discuss w/resident/PA/RESIDENTIAL ROOFER HELPER, agreed w/resident/PA/RESIDENTIAL ROOFER HELPER, reviewed EMR data (avail), discussed with nursing, discussed with case mgmt, amended to note Attending Assessment/Plan: Patient seen and examined. Smiling broadly not in any distress. No issues overnight. No events on telemetry monitoring. Remains in atrial fibrillation but better rate controlled after optimization of his regimen by the cardiology service yesterday. Patient apparently reports history of chest pain. He is scheduled to undergo a treadmill nuclear stress test later on today. The stress test is negative he may be discharged home. He will be discharged home Cardizem and sotalol for rate control. He will receive anticoagulant therapy with Eliquis. Hemoglobin level has been stable overnight. he will also be discharged on statin therapy.
--- NOTE | 2018-03-02 08:57 | ECHOCARDIOGRAM REPORT ---
CHATO GARCES Age: 67 : 1950 Gender: M Exam Date: 03/01/2018 11:45 Exam Location: [facility] Ht (in): 70 Wt (lb): 185 BSA: 2.05 BP: 124 / 72 Ordering Physician: Dina Knox MD Referring Physician: Dina Knox MD Technologist: Shimon Espinoza [facility] Room Number: Indications: CHEST PAIN Rhythm: Sinus Technical Quality: fair FINDINGS Left Ventricle Normal left ventricular size, wall thickness and systolic function with no obvious regional wall motion abnormalities. Normal left ventricular diastolic filling pattern for age. The ejection fraction is visually estimated at 60%. Right Ventricle The right ventricle is normal in size and function. Right Atrium The right atrium is normal in size. Left Atrium The left atrium is normal in size. The interatrial septum is intact. Mitral Valve The mitral valve is normal in structure and function. There is trace mitral regurgitation. Aortic Valve Mild aortic annular and leaflet sclerosis without any stenosis or significant gradient . There is no aortic regurgitation. Tricuspid Valve The tricuspid valve is normal in structure and function. There is tarce tricuspid regurgitation. Pulmonary artery systolic pressure is normal. Pulmonic Valve Structurally normal pulmonic valve. There is no pulmonic regurgitation. Pericardium Normal pericardium without effusion. No pleural effusion. Great Vessels Normal aortic root dimension. The aortic arch and great vessels are well seen and are normal. CONCLUSIONS Normal left ventricular size, wall thickness and systolic function with no obvious regional wall motion abnormalities. Normal left ventricular diastolic filling pattern for age. The ejection fraction is visually estimated at 60%. There is trace mitral regurgitation. Mild aortic annular and leaflet sclerosis without any stenosis or significant gradient . There is tarce tricuspid regurgitation. Pulmonary artery systolic pressure is normal. Normal pericardium without effusion. Normal aortic root dimension. The aortic arch and great vessels are well seen and are normal. Jason Castillo M.D. (Electronically Signed) Final Date: 02 March 2018 08:56 MEASUREMENTS (Male / Female) Normal Values 2D ECHO LV Diastolic Diameter PLAX 5.3 cm 4.2 - 5.9 / 3.9 - 5.3 cm LV Systolic Diameter PLAX 3.4 cm 2.1 - 4.0 cm LV Fractional Shortening PLAX 35.8 % 25 - 46 % LV Ejection Fraction 2D Teich 65.0 % IVS Diastolic Thickness 0.9 cm LVPW Diastolic Thickness 1.0 cm LV Relative Wall Thickness 0.4 LVOT Diameter 2.2 cm Aortic Root Diameter 2.8 cm LA Systolic Diameter LX 4.2 cm 3.0 - 4.0 / 2.7 - 3.8 cm LV Diastolic Length 4C 8.5 cm 6.9 - 10.3 cm LV Diastolic Area 4C 35.8 cm LV Diastolic Volume MOD 4C 124.0 cm LV Ejection Fraction MOD 4C 69.4 % LV Stroke Volume MOD 4C 86.0 cm LV Cardiac Index MOD 4C 3106.3 cm/minm LV Systolic Length 4C 7.2 cm LV Systolic Area 4C 18.0 cm LV Systolic Volume MOD 4C 38.0 cm LV Diastolic Volume 4C AL 128.8 cm 85 - 139 / 69 - 109 cm LV Systolic Volume 4C AL 38.3 cm LV Ejection Fraction 4C AL 70.3 % LV Stroke Volume 4C AL 90.5 cm LV Cardiac Index 4C AL 3269.6 cm/minm Ascending Aorta Diameter 2.9 cm DOPPLER AV Peak Velocity 145.0 cm/s AV Peak Gradient 8.4 mmHg LVOT Peak Velocity 110.0 cm/s LVOT Peak Gradient 4.8 mmHg AV Area Cont Eq pk 2.9 cm Mitral E Point Velocity 60.7 cm/s Mitral A Point Velocity 66.1 cm/s Mitral E to A Ratio 0.9 MV Deceleration Time 232.0 ms TR Peak Velocity 254.0 cm/s TR Peak Gradient 25.8 mmHg PV Peak Velocity 99.1 cm/s PV Peak Gradient 3.9 mmHg LV E' Lateral Velocity 9.8 cm/s Mitral E to LV E' Lateral Ratio 6.2 LV E' Septal Velocity 8.1 cm/s Mitral E to LV E' Septal Ratio 7.5
[2018-03-02] MEDS ORDERED: CARDIZEM30 M1 PO (09:22)
--- NOTE | 2018-03-02 10:01 | Patient Discharge Instructions ---
Discharge Instructions General Discharge Information You were seen/treated for: Atrial fibrillation You had these procedures: Exercise stress test Watch for these problems: Dizziness, fainting, palpitations, chest pain, please go to your nearest emergency department. 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 after discharge Diet Continue normal diet: Yes Recommended Diet: Heart Healthy Activity Full Activity/No Limits: No Activity Self Limited: Yes Acute Coronary Syndrome Inclusion Criteria At DC or during hospital stay patient has or had the following: ACS DIAGNOSIS No Discharge Core Measures Meds if any: Prescribed or Continued at Discharge Meds if any: NOT Prescribed or Continued at Discharge Congestive Heart Failure Inclusion Criteria At DC or during hospital stay patient has or had the following: CHF DIAGNOSIS No Discharge Core Measures Meds if any: Prescribed or Continued at Discharge Meds if any: NOT Prescribed or Continued at Discharge Cerebrovascular accident Inclusion Criteria At DC or during hospital stay patient has or had the following: CVA/TIA Diagnosis No Discharge Core Measures Meds if any: Prescribed or Continued at Discharge Meds if any: NOT Prescribed or Continued at Discharge Venous thromboembolism Inclusion Criteria VTE Diagnosis No VTE Type NONE VTE Confirmed by (Test) NONE Discharge Core Measures - Per Current guidelines, there needs to be overlap - treatment for the first 5 days of Warfarin therapy. - If discharged on Warfarin prior to 5 days of - overlap therapy, the patient will need to be - assessed for post discharge needs including - *Post discharge parental anticoagulation - *Warfarin and/or parental anticoagulation education - *Follow up date to check INR post discharge Meds if any: Prescribed or Continued at Discharge Note: Overlap Therapy is Warfarin and Anticoagulant Meds if any: NOT Prescribed or Continued at Discharge
--- NOTE | 2018-03-02 10:03 | PN- Student ---
Subjective Subjective: This is a 67 year old man with a history of hypertension, prior atrial fibrillation, S/P Whipple Procedure, S/P Prostatectomy. Yesterday he converted spontaneously to normal sinus. It was reported that overnight he had a fall in heart rate to 56 beats per minute that resolved by this morning. He has no overnight complaints, and states that he is ready to go home. He denies nausea, vomiting, fever, chills, shortness of breath, chest pain, and light headedness. Objective Objective: Physical Exam: General: Patient is alert and oriented, pleasant and well spoken. Chest: Normal rate and rhythm, no rubs clicks or gallops. Lungs: Even thoracic expansion, lung sounds were clear bilaterally. 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 No lower extremity edema. Results Results: Laboratory Tests 03/02/18 0700: Triglycerides 110, Cholesterol 169, LDL Cholesterol, Calc 105, HDL Cholesterol 42, Cholesterol/HDL Ratio 4, CBC w Diff NO MAN DIFF REQ, RBC 4.62 L, MCV 90.2, MCH 30.2, MCHC 33.5, RDW 13.6, MPV 7.0 L, Gran % 67.5, Lymphocytes % 22.5, Monocytes % 8.4, Eosinophils % 1.2, Basophils % 0.4, Absolute Granulocytes 4.5, Absolute Lymphocytes 1.5, Absolute Monocytes 0.6, Absolute Eosinophils 0.1, Absolute Basophils 0 03/01/18 1110: APTT 48 H 03/01/18 0650: Anion Gap 9, Estimated GFR > 60, BUN/Creatinine Ratio 16.3, CBC w Diff NO MAN DIFF REQ, RBC 4.38 L, MCV 90.1, MCH 30.3, MCHC 33.7, RDW 13.7, MPV 6.9 L, Gran % 60.6, Lymphocytes % 29.4, Monocytes % 8.9, Eosinophils % 0.8, Basophils % 0.3, Absolute Granulocytes 4.1, Absolute Lymphocytes 2.0, Absolute Monocytes 0.6, Absolute Eosinophils 0.1, Absolute Basophils 0 03/01/18 0205: Troponin I < 0.01 02/28/18 2315: APTT 66 H 02/28/18 2030: Troponin I < 0.01 02/28/18 1445: Urine Color YEL, Urine Clarity CLEAR, Urine pH 6.0, Ur Specific [place] 1.015, Urine Protein NEG, Urine Ketones NEG, Urine Nitrite NEG, Urine Bilirubin NEG, Urine Urobilinogen 0.2, Ur Leukocyte Esterase NEG, Ur Microscopic EXAM NOT REQUIRED, Urine Hemoglobin NEG, Urine Glucose NEG 02/28/18 1415: Anion Gap 14, Estimated GFR > 60, BUN/Creatinine Ratio 16.7, Glucose 116 H, Calcium 9.7, Magnesium 2.0, Total Bilirubin 0.6, AST 28, ALT 32, Alkaline Phosphatase 67, Troponin I < 0.01, Total Protein 7.4, Albumin 4.7, Globulin 2.7, Albumin/Globulin Ratio 1.7, TSH &T3 &Free T4 Intrp 1.580, PT 13.1 H, INR 1.20 H, APTT 29, D-Dimer High Sensitivty < 200, CBC w Diff NO MAN DIFF REQ, RBC 4.90, MCV 89.6, MCH 30.2, MCHC 33.7, RDW 13.6, MPV 6.7 L, Gran % 65.1, Lymphocytes % 26.2, Monocytes % 7.7, Eosinophils % 0.7, Basophils % 0.3, Absolute Granulocytes 4.9, Absolute Lymphocytes 2.0, Absolute Monocytes 0.6, Absolute Eosinophils 0.1, Absolute Basophils 0 Assessment/Plan Assessment: This is a 67 year old male with past medical history of hypertension, prior a- fib, status post Whipple Procedure, status post Prostatectomy who is currently being treated for a-fib. Atrial fibrillation: Patient has converted to normal sinus. Patient was seen by cardiology. In addition to current plan, cardiology recommeds an exercise and nuclear stress test and metoprolol. Patient refuses metoprolol, will consider other beta kermit. Echocardiogram has been performed and was normal. Hypertension: Blood pressure has been stable over the last 24 hours. Low Hematocrit: Stool occult has not been obtained yet. Hemoglobin and hematocrit have improved since yesterday and are nearly normal. Plan: Atrial fibrillation: -Continue Diltiazem to 30 MG Q6h PO -Continue Eliquis 5 MG PO BID -Begin Sotolol 40 MG PO BID -Begin Atorvastatin 40 MG daily. -Discontinue Chlorthalidone -Discontinue Losartan -Awaiting results of nuclear stress test Hypertension: -See above changes to medications Low Hematocrit: -Obtain stool guaiac Skin Rash: -Consider outpatient dermatological referral -Consider outpatient dermatological referral.
[2018-03-02] MEDS ORDERED: BETAPACE80 MG PO ×3 (11:31→17:49)
[2018-03-02] MEDS ORDERED: ATORVASTATIN CA40 M1 PO ×2 (11:43→17:49)
[2018-03-02 14:21] VITALS: BP 138/90
[2018-03-02 15:49] VITALS: BP 128/78
--- NOTE | 2018-03-02 17:03 | PN- Cardiology ---
Subjective Subjective: * No chest pain. * Patient is now in sinus rhythm. * mildly decreased exercise tolerance on stress test with non-specific ECG changes Objective Vital Signs and I&Os Vital Signs Date Time Temp Pulse Resp B/P B/P Pulse O2 O2 Flow FiO2 Mean Ox Delivery Rate 03/02 1549 79 128/78 / 1421 98.0 90 18 138/90 97 Room Air 03/02 0804 82 142/84 / 0721 98.4 63 18 134/78 97 Room Air 03/02 0316 88 120/82 03/01 2224 98.3 89 18 118/64 95 Room Air 03/01 2109 85 112/70 Intake & Output 03/02 1600 03/02 0800 03/02 0000 03/01 1600 03/01 0800 03/01 0000 Intake Total 320 120 120 830 460 220 Output Total Balance 320 120 120 830 460 220 Intake, IV 80 240 Intake, Oral 320 120 120 750 220 220 Number 1 Bowel Movements Patient 197 lb 191 lb Weight Weight Bed scale Bed scale Measurement Method Physical Exam: General: WD/WN male in NAD; alert and oriented x 3 HEENT: NC/AT, PERRL, EOMI Neck: no JVD, no carotid bruit Heart: irregularly irregular with 2/6 systolic murmur Lungs: clear bilaterally Abdomen: soft, NT, +ve bowel sounds Extremities: no edema Assessment/Plan Assessment/Plan * This patient had atrial fibrillation with increased heart rate. This is not an isolated occurence and in the setting of paroxysmal atrial fibrillation this patient should be anticoagulated. He has a risk factor in the form of hypertension. Begin Eliquis 5mg BID. I would also begin a beta kermit for rate control and for control of his hypertension since this patient may have angina. Begin Sotolol 40mg BID to help maintain a sinus rhythm. The cause of his atrial fibrillation is likely hypertension. * In consideration of chest discomfort associated with his elevated heart rate this patient may well have ischemia. His stress test results are pending. If normal, the patient can be discharged on Sotolol 40mg BID, Eliquis 5mg BID, Atovastatin 40mg daily, Lisinopril 10mg daily and Cardizem CD 120mg daily with follow up in the office in a week. Continue telemetry? Yes
--- NOTE | 2018-03-02 17:24 | NUCLEAR MEDICINE REPORT ---
EXERCISE STRESS AND RESTING SPECT MYOCARDIAL PERFUSION IMAGING STUDY WITH GATED SPECT IMAGES: CLINICAL INDICATION: Hypertension. PROCEDURE: Regional myocardial perfusion was assessed using a 1 day protocol. Stress images were obtained on 03/02/2018 following the intravenous administration of 17.5 mCi Tc 99m Myoview. Stress was performed using the standard Octavio protocol, with the patient reaching a peak heart rate of 121% maximal predicted heart rate. Rest images were obtained 03/02/2018 following the intravenous administration of 32.9 mCi Technetium 99m Myoview. Single photon emission tomographic (SPECT) images were obtained. SPECT images were acquired in a 64 x 64 matrix of 64 projections over 180 degrees. These were reconstructed into standard short axis, horizontal and vertical long axis cardiac projections. FINDINGS: The post stress images demonstrate the left ventricular chamber to be normal in size. There is homogeneous distribution of activity in the left ventricular myocardium with no regions of abnormally decreased activity noted. The resting images also demonstrate homogeneous distribution of activity in the left ventricular myocardium, and are not significantly changed from the post stress images. The stress images were obtained using a gated SPECT technique, which permits visualization of wall motion and calculation of the left ventricular ejection fraction. No left ventricular wall motion abnormalities are noted on the stress study. The calculated left ventricular ejection fraction is 57% on the stress study. No previous studies available for comparison. IMPRESSION: Normal exercise stress and resting myocardial perfusion study with normal left ventricular wall motion and ejection fraction.
[2018-03-02] MEDS ORDERED: CARDIZEM CD120 M2 PO (17:49)
[2018-03-02] MEDS ORDERED: LISINOPRIL10 M1 PO (17:49)
[2018-03-02] MEDS ORDERED: ELIQUIS5 M1 PO (17:49)
--- NOTE | 2018-03-03 19:23 | Discharge Summary ---
Visit Information Visit Dates Admission Date: 02/28/18 Discharge Date: 03/02/18 Hospital Course Course Attending Physician: Ludy Lucio MD Primary Care Physician: Sp Syemour MD Hospital Course: 67-year-old male with past medical history of hypertension, as well as a brief period of Atrial fibrillation after undergoing a Whipple procedure in June 2017since resolved. Patient also became hypotensive to the point of receiving blood transfusions after laparoscopic prostatectomy in November of this year, but has otherwise not been found to be hypotensive. 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 He remained at the grill for approximately half an hour until he began to noticing dizziness and went inside and checked his blood pressure, which his machine was unable to read and gave a pulse into the 120s and above. While inside the patient also began to feel faint and felt like he would pass out. Patient denied shortness of breath, diaphoresis, impending sense of dread, or nausea and vomiting. Upon presentation in the emergency department patient was recognized to be in atrial fibrillation and was admitted to the cardiac telemetry unit. Cardizem drip was started for rate control and after initially receiving heparin, the patient was started on Eliquis for anticoagulation. Cardiology was consulted and added sotalol for rhythm management, and additionally recommended echocardiogram and nuclear exercise stress test to rule out underlying cardiac disease. The echocardiogram found an EF of 60%. The IV Cardizem was switched over to oral extended release formula and the patient was also started on a statin and aspirin. Nuclear stress test was performed with treadmill exercise and was found to be negative. 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 Allergies: Coded Allergies: acetaminophen (From PERCOCET) (RASH 02/28/18) oxycodone (From PERCOCET) (RASH 02/28/18) Significant Procedures: Treadmill nuclear stress test, results negative Disposition Summary Disposition Principal Diagnosis: Atrial fibrillation with RVR Additional Diagnosis: Hypertension Discharge Disposition: home or self care Discharge Instructions General Discharge Information Code Status: Full Code Patient's Diet: Regular diet Patient's Activity: Self-limited activity Follow-Up Instructions/Appts: Watch for these problems: Dizziness, fainting, palpitations, chest pain, please go to your nearest emergency department. 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 Comments: NOT GIVEN IN THE HOSPITAL Sotalol (Betapace) 80 MG TABLET 0.5 Tablet ORAL TWICE DAILY Qty = 15 No Refills Instructions: Take half a tab in AM and half a tab in PM every day. Comments: Last Taken: 03/02/18 Time: 13:16 Diltiazem HCl (Cardizem Cd) 120 MG CAP.ER.24H 1 Tablet ORAL DAILY Qty = 30 No Refills Comments: Last Taken: 03/02/18 Time: 15:49 Lisinopril (Lisinopril) 10 MG TABLET 1 Tablet ORAL DAILY Qty = 30 No Refills Comments: NOT GIVEN IN THE HOSPITAL Copies To: Dawn HAAS,Sp Angela MD PHD,Doyle Rivera MD Review Statement Documenting Attending: Ludy Lucio MD
== END 2018-03-02 18:40 | DRG 310 ==
LOC: ERH 14:00 → ERHI 15:50 → 1NO 15:50 → ENRESERV 16:14 → ENTRNSPT 17:01 → EDTRNSPTSTS 17:18 → EDTRNSPT 17:18 → 1NO 17:33 → CMPTRNSPT 17:53 → 1NO 03-01 07:54
PROVIDERS: Hospitalist; Internal Medicine; Physician Assistant Medical; Student in an Organized Health Care Education/Training Program
DX: I48.91 Unspecified atrial fibrillation (principal); I10 Essential (primary) hypertension; Z88.6 Allergy status to analgesic agent; Z88.5 Allergy status to narcotic agent; Z90.79 Acquired absence of other genital organ(s); Z79.01 Long term (current) use of anticoagulants; R21 Rash and other nonspecific skin eruption; R07.9 Chest pain, unspecified
CPT/HCPCS: 1NSP; 36415; 36592; 71045; 78452; 81003; 82436; 93005; 93010; 93016; 93017; 93306; 96374; 96376; 99291; A9502; J1644; J7060